=== PATIENT | male | born 2000 | race Caucasian/White ===

== ENCOUNTER 2024-07-10 12:34 | Emergency (ER) | payer OTHER, SELFPAY ==
[2024-07-10 12:55] VITALS: BP 152/98; PULSE 85; O2SAT 95; BMI 40.0
--- NOTE | 2024-07-10 13:09 | ECG_ITS ---
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
--- NOTE | 2024-07-10 13:09 | ED.GENADUL1 ---
HPI HPI - General Adult General Chief complaint: Chest Pain Stated complaint: HEART SKIPPING BEATS Time Seen by Provider: 07/10/24 12:54 Source: patient Mode of arrival: walk-in Limitations: no limitations History of Present Illness HPI narrative: 24-year-old male presents for palpitations. Since last night he has been feeling his heart skip a beat occasionally. He states it happens perhaps 5 or 6 times in an hour but there is long periods when it does not happen at all. He has had some caffeine intake recently, Mountain Dew. No new medication. He thinks it might be his anxiety as well. No syncope or presyncope. Related Data Home Medications ?Medication ?Instructions ?Recorded ?Confirmed escitalopram oxalate 20 mg tablet 20 mg PO DAILY 07/10/24 07/10/24 (Lexapro) lisinopril 20 mg tablet 20 mg PO DAILY 07/10/24 07/10/24 Allergies Allergy/AdvReac Type Severity Reaction Status Date / Time No Known Drug Allergies Allergy Verified 07/10/24 12:54 Opioid HPI Opioid Management Most Recent Opioid Data: No Data to Display Review of Systems ROS Narrative A ten point review of systems is negative except as noted above. Exam Narrative Exam Narrative: Nurses note and vital signs reviewed and patient is not hypoxic. General: The patient appears well and in no apparent distress. Patient is resting comfortably on cart. Skin: Warm, dry, no pallor noted. There is no rash noted. Head: Normocephalic, atraumatic Eye: Normal conjunctiva, no drainage Ears, Nose, Mouth, and Throat: oral mucosa is moist. Nares patent. Cardiovascular: Regular Rate and Rhythm Respiratory: Patient is in no distress, no accessory muscle use, lungs are clear to auscultation, no wheezing, rales or rhonchi Back: non-tender GI: Soft and nontender Musculoskeletal: The patient has no evidence of calf tenderness, no pitting edema, symmetrical pulses noted bilaterally Neurological: A&O, normal speech Psychiatric: Cooperative Constitutional Vital Signs, click to edit/add: Last Vital Signs Pulse 85 07/10/24 12:55 Resp 16 07/10/24 12:55 BP 152/98 H 07/10/24 12:55 Pulse Ox 95 07/10/24 12:55 O2 Del Method Room Air 07/10/24 12:55 Course Vital Signs Vital signs: Vital Signs Pulse Rate 85 07/10/24 12:55 Respiratory Rate 16 07/10/24 12:55 Blood Pressure 152/98 H 07/10/24 12:55 Pulse Oximetry 95 07/10/24 12:55 Oxygen Delivery Method Room Air 07/10/24 12:55 Pulse Rate 85 07/10/24 12:55 Respiratory Rate 16 07/10/24 12:55 Blood Pressure 152/98 H 07/10/24 12:55 Pulse Oximetry 95 07/10/24 12:55 Oxygen Delivery Method Room Air 07/10/24 12:55 Medical Decision Making MDM Narrative Medical decision making narrative: Laboratory analysis is negative. He has had an occasional PVC on the monitor. Findings are discussed with the patient and he is discharged home. He was recommended to cut back on the caffeine ingestion. Treatment diagnosis and follow-up were discussed with the patient. Differential Diagnosis Differential Diagnosis: PVC, anxiety, PAC Lab Data Lab results reviewed: Yes I reviewed the patient's lab results Labs: Lab Results 07/10/24 Range/Units 13:02 WBC 8.2 (4.0-11.0) 10^3/uL RBC 4.87 (4.70-6.10) 10^6/uL Hgb 15.3 (14.0-18.0) g/dL Hct 44.3 (42.0-54.0) % MCV 91.0 (80.0-94.0) fL MCH 31.4 (25.9-34.0) pg MCHC 34.5 (29.9-35.2) g/dL RDW 12.9 (11.0-15.0) % Plt Count 364 (150-450) 10^3/uL MPV 9.2 L (9.5-13.5) fL Neut % (Auto) 58.8 (43.0-75.0) % Lymph % (Auto) 24.0 (20.5-60.0) % [place] % (Auto) 10.6 (1.7-12.0) % Eos % (Auto) 4.4 (0.9-7.0) % Baso % (Auto) 1.0 (0.2-2.0) % Neut # (Auto) 4.8 (1.4-6.5) 10^3/uL Lymph # (Auto) 2.0 (1.2-3.8) 10^3/uL [place] # (Auto) 0.9 H (0.3-0.8) 10^3/uL Eos # (Auto) 0.4 (0.0-0.7) 10^3/uL Baso # (Auto) 0.1 (0.0-0.1) 10^3/uL Abs Immat Gran (auto) 0.10 H (0.00-0.03) 10^3/uL Imm/Tot Granulo (auto) 1.2 H (0.0-0.5) % Sodium 140 (136-145) mmol/L Potassium 3.6 (3.5-5.1) mmol/L Chloride 103 (98-107) mmol/L Carbon Dioxide 26.0 (21.0-32.0) mmol/L Anion Gap 14.6 BUN 20.0 H (7.0-18.0) mg/dL Creatinine 1.07 (0.70-1.30) mg/dL Est GFR ( Amer) >60 (>=60 mL/min/1.73m^2) Est GFR (Non-Af Amer) >60 (>=60 mL/min/1.73m^2) BUN/Creatinine Ratio 18.7 Glucose 106 (74-106) mg/dL Calcium 8.7 (8.5-10.1) mg/dL Magnesium 1.8 (1.8-2.4) mg/dL ECG Data Attestation: I personally reviewed and interpreted this ECG as follows: (EKG on my interpretation shows sinus rhythm without acute change.) Discharge Plan Discharge Chief Complaint: Chest Pain Clinical Impression: PVC (premature ventricular contraction) Patient Disposition: Home, Self-Care Time of Disposition Decision: 14:11 Condition: Good Mode of Transportation: Private Vehicle Prescriptions / Home Meds: No Action lisinopril 20 mg tablet 20 mg PO DAILY escitalopram oxalate [Lexapro] 20 mg tablet 20 mg PO DAILY Print Language: [place]al[place] Instructions: Premature Ventricular Contractions (ED) Referrals: VENKATA CANO [Primary Care Provider] - 1 week
[2024-07-10 13:24] LABS: Basophils Absolute Auto 0.1 10^3/uL (0.0-0.1); Eosinophils Absolute Auto 0.4 10^3/uL (0.0-0.7); Eosinophils Percent Auto 4.4 % (0.9-7.0); Hematocrit 44.3 % (42.0-54.0); Hemoglobin 15.3 g/dL (14.0-18.0); Immature Granulocytes Pct Auto 1.2 % (0.0-0.5); Mean Corpuscular HGB Conc 34.5 g/dL (29.9-35.2); Mean Corpuscular Hemoglobin 31.4 pg (25.9-34.0); Mean Platelet Volume 9.2 fL (9.5-13.5); Monocytes Absolute Auto 0.9 10^3/uL (0.3-0.8); Monocytes Percent Auto 10.6 % (1.7-12.0); Neutrophils Absolute Auto 4.8 10^3/uL (1.4-6.5); Neutrophils Percent Auto 58.8 % (43.0-75.0); Platelet Count 364 10^3/uL (150-450); Red Blood Count 4.87 10^6/uL (4.70-6.10); Red Cell Distribution Width 12.9 % (11.0-15.0); White Blood Count 8.2 10^3/uL (4.0-11.0)
[2024-07-10 13:39] LABS: Anion Gap 14.6; BUN Creatinine Ratio 18.7; Calcium 8.7 mg/dL (8.5-10.1); Chloride 103 mmol/L (98-107); Estimated GFR (African America >60 (>=60 mL/min/1.73m^2); Estimated GFR (Non-African Ame >60 (>=60 mL/min/1.73m^2); Glucose 106 mg/dL (74-106); Magnesium 1.8 mg/dL (1.8-2.4); Potassium 3.6 mmol/L (3.5-5.1); Sodium 140 mmol/L (136-145)
== END 2024-07-10 14:25 | disposition home or self-care (01) ==
PROVIDERS: Emergency Provider Emergency Medicine; PCP Family Medicine
DX: I49.3 Ventricular premature depolarization (principal)
CPT/HCPCS: 36415; 80048; 83735; 85025; 93005; 99284